=== PATIENT | male | born 1940 | race Caucasian/White ===

== ENCOUNTER 2018-11-26 12:17 | Inpatient (IN) ==
[2018-11-30] MEDS: Apixaban 5 MG TABLET PO SCH (20:28)
[2018-12-01 07:03] LABS: Basophils # 0.1 K/mcL (0.0-0.2); Basophils % 0.8 %; Eosinophils # 0.1 K/mcL (0.0-0.6); Eosinophils % 1.4 %; Hematocrit 41.9 % (37.5-50.1); Hemoglobin 13.5 g/dL (12.9-16.9); Immature Granulocytes % 0.2 % (0-4); Lymphocytes # 1.5 K/mcL (0.6-4.6); Lymphocytes % 15.8 %; Mean Corpuscular HGB Conc 32.2 g/dL (31.6-35.5); Mean Corpuscular Hemoglobin 29.3 pg (28.0-33.3); Mean Corpuscular Volume 90.9 fL (83.0-100.0); Mean Platelet Volume 10.2 fL (9.4-12.4); Monocytes # 0.8 K/mcL (0.0-1.3); Monocytes % 8.5 %; Neutrophils # 6.8 K/mcL (1.6-8.9); Platelet Count 225 K/mcL (140-400); Red Blood Count 4.61 M/mcL (4.19-5.50); Segmented Neutrophils % 73.3 %; White Blood Count 9.3 K/mcL (4.3-11.1)
[2018-12-01 07:35] LABS: BUN/Creatinine Ratio 18 (6-26); Blood Urea Nitrogen 20 mg/dL (8-23); Calcium 9.3 mg/dL (8.6-10.3); Carbon Dioxide 30 mEq/L (23-29); Chloride 106 mEq/L (98-107); Glucose 118 mg/dL (70-105); Osmolality,Calculated 294 (280-300); Potassium 4.4 mEq/L (3.5-5.1); Sodium 140 mEq/L (136-145); eGFR For African Americans > 60 (> 60); eGFR For Non-African Americans > 60 (> 60)
[2018-12-01] MEDS: Apixaban 5 MG TABLET PO SCH ×2 (09:12→19:53)
[2018-12-01] MEDS: (Fluticasone Furoate [Arnuity Ellipta] 1 PUFF) IH SCH (09:12)
--- NOTE | 2018-12-01 11:57 | Internal Med History&Physical ---
Date of Encounter: 12/01/18 Time of Encounter: 11:55 Assessment and Plan (1) CVA (cerebral vascular accident) Current visit: Yes Status: Acute PT and OT to eval and treat. Will follow progress. Assist with ADLs as necessary. Continue current medication. Follow up with neurologist as scheduled. Qualifiers: CVA mechanism: unspecified Qualified Code(s): I63.9 - Cerebral infarction, unspecified (2) COPD (chronic obstructive pulmonary disease) Current visit: Yes Status: Chronic Stable. Continue current medication. Qualifiers: COPD type: unspecified COPD Qualified Code(s): J44.9 - Chronic obstructive pulmonary disease, unspecified (3) HLD (hyperlipidemia) Current visit: Yes Status: Chronic Qualifiers: Hyperlipidemia type: mixed hyperlipidemia Qualified Code(s): E78.2 - Mixed hyperlipidemia (4) HTN (hypertension) Current visit: Yes Status: Chronic Controlled with current medication. Monitor blood pressure. Qualifiers: Hypertension type: essential hypertension Qualified Code(s): I10 - Essential (primary) hypertension (5) Paroxysmal atrial fibrillation Current visit: Yes Status: Acute Rate and rhythm stable. Continue current medication. On Plavix and eliquis. Internal Medicine - H&P: HPI Admitted From: Hospital to Hospital Transfer Plans for Post Hospital Care: Home History of present illness: Mr. Guthrie is a 78 year old male admitted to inpatient rehab s/p CVA. was taken to [facility] after family noticed left facial droop and left-sided weakness. He also had some slurred speech. MRI of brain showed acute infarct involving anterior limb of right internal capsule. Has admission was complicated by a fib with RVR, atrial flutter. Started on metoprolol and eliquis. Also taking Plavix. Patient denies shortness of breath, chest pain, fever, chills, nausea vomiting or diarrhea. Maintaining appetite and hydration. States bowels are moving as normal. Past medical history includes COPD, hypertension, hyperlipidemia and multiple TIAs. Lives at home with . Was independent with ADLs prior to admission. Past Med Surg Social Fam HX - Past Medical History Medical history: COPD, CVA, hyperlipidemia, hypertension Additional medical history: home 2L o2 at night Psychiatric history: no psych history - Past Surgical History Surgical History: orthopedic, other, other Additional surgical history: growth on neck, left foot all toes amputated - Social History Smoking Status: Never smoker Smokeless Tobacco Status: Yes Alcohol use: none Drug use: none - Family History Brother Family Member Ethnicity: Non- Living Status: Hx Family Cancer: Yes Hx Family Endocrine Disorder: Yes (DM) Father Family Member Ethnicity: Non- Living Status: Hx Family Cardiac Disorders: Yes Hx Family Respiratory Disorders: Yes (Asthma) Hx Family Cancer: No Hx Family GI Disorders: No Hx Family Endocrine Disorder: No Hx Family Neuromuscular Disorders: No Hx Family Neurologic Disorders: No Hx Family HEENT Disorders: No Hx Family Autoimmune Disorders: No Mother Family Member Ethnicity: Non- Living Status: Hx Family Cardiac Disorders: No Hx Family Respiratory Disorders: No Hx Family Cancer: No Hx Family GI Disorders: No Hx Family Endocrine Disorder: No Hx Family Neuromuscular Disorders: No Hx Family Neurologic Disorders: No Hx Family HEENT Disorders: No Hx Family Autoimmune Disorders: No Internal Medicine - H&P: Meds Albuterol Neb [Proventil Neb] 2.5 mg IH TID PRN 08/08/16 [History] Citalopram Hydrobromide [Celexa] 40 mg PO DAILY 08/08/16 [History] Lisinopril [Zestril] 5 mg PO DAILY 08/08/16 [History] Umeclidinium Brm/Vilanterol Tr [Anoro Ellipta 62.5-25 Mcg INH] 1 puff IH DAILY 08/08/16 [History] Omeprazole [PriLOSEC] 40 mg PO DAILY #30 cap 08/10/16 [Rx] Acetaminophen [Pain Relief] 1,500 mg PO HS PRN 11/26/18 [History] Albuterol Sulfate [Ventolin Hfa] 2 puff IH Q4-6H PRN 11/26/18 [History] Fluticasone Furoate [Arnuity Ellipta] 1 puff IH DAILY 11/26/18 [History] Apixaban [Eliquis] 5 mg PO BID #60 tablet 11/30/18 [Rx] Atorvastatin [Lipitor] 80 mg PO HS #30 tablet 11/30/18 [Rx] Clopidogrel [Plavix] 75 mg PO DAILY #30 tablet 11/30/18 [Rx] Metoprolol [Lopressor] 12.5 mg PO BID #60 tablet 11/30/18 [Rx] Allergy/AdvReac Type Severity Reaction Status Date / Time Penicillins AdvReac Rash Verified 05/27/18 12:27 All Systems PM: A 10-system review of systems was performed and is negative for pertinent findings except as documented above in the HPI. - Constitutional Constitutional: no chills, no fever(s), no night sweats - EENT Eyes: no change in vision, no discharge, no pain, no photophobia Ears: no ear discharge, no ear pain, no tinnitus Nose, mouth and throat: no dysphagia, no nasal discharge, no neck pain, no sore throat - Cardiovascular Cardiovascular ROS IM: no chest pain, no diaphoresis, no dyspnea, no lightheadedness, no palpitations, no syncope - Respiratory Respiratory: no cough, no dyspnea, no wheezing, no excessive phlegm production - Gastrointestinal Gastrointestinal: no abdominal pain, no diarrhea, no hematemesis, no hematochezia, no melena, no nausea, no vomiting - Musculoskeletal Musculoskeletal ROS IM: no numbness, no tingling - Integumentary Integumentary IM: no rash, no unusual bruising - Neurological Neurological ROS: no confusion, no convulsions, no focal weakness, no numbness, no tingling, no tremor(s) - Hematologic/Lymphatic Hematologic/Lymphatic: no easy bruising - Constitutional Vitals: Temp Pulse Resp BP Pulse Ox 97.9 F 53 16 121/70 95 12/01/18 11:00 12/01/18 11:00 12/01/18 11:00 12/01/18 11:00 12/01/18 11:00 General appearance: Present: cooperative, A&O X 3, pleasant, no acute distress, answers questions appropriately - Head Head exam: Present: atraumatic, normocephalic - Eye Eye exam: Present: PERRL, conjuntiva pink, sclera anicteric Pupils: Present: PERRL - Neck Neck exam general surgery: Present: supple, trachea midline. Absent: lymphadenopathy - Respiratory Respiratory exam: Present: CTAB. Absent: accessory muscle use, rales, rhonchi, wheezes - Cardiovascular Cardiovascular exam: Present: irregular rhythm, +S1, +S2. Absent: diastolic murmur, gallop, rubs, systolic murmur - GI/Abdominal GI/Abdominal exam: Present: normal bowel sounds, soft, no peritoneal signs. Absent: distended, tenderness - Extremities Exam Extremities exam: Present: warm, radial pulses palpable and symmetrical. Absent: calf tenderness, cyanotic, pedal edema - Neurological Exam Neurological exam: Present: CN II-XII intact, oriented X3, no focal deficits. Absent: pronater drift, facial droop, speech deficit - Skin Skin exam: Present: dry, intact Internal Med - H&P Results - Labs CBC & Chem 7: 12/01/18 06:30 12/01/18 06:30 Labs: Short CBC 12/01/18 Range/Units 06:30 WBC 9.3 (4.3-11.1) K/mcL Hgb 13.5 (12.9-16.9) g/dL Hct 41.9 (37.5-50.1) % Plt Count 225 (140-400) K/mcL Neutrophils # 6.8 (1.6-8.9) K/mcL BMP 12/01/18 06:30 Sodium 140 Potassium 4.4 Chloride 106 Carbon Dioxide 30 H BUN 20 Creatinine 1.11 Glucose 118 H Calcium 9.3
[2018-12-02] MEDS: Apixaban 5 MG TABLET PO SCH ×2 (07:47→20:53)
[2018-12-02] MEDS: (Fluticasone Furoate [Arnuity Ellipta] 1 PUFF) IH SCH (07:48)
--- NOTE | 2018-12-02 11:57 | Internal Med Progress Note ---
Date of Encounter: 12/02/18 Time of Encounter: 11:55 - Assessment and plan (1) CVA (cerebral vascular accident) Current Visit: Yes Status: Acute Assessment and plan: No new neurological deficits. Continue PT and OT and ST. Continue nectar thick diet. Follow up with neurologist as scheduled. Qualifiers: CVA mechanism: unspecified Qualified Code(s): I63.9 - Cerebral infarction, unspecified (2) COPD (chronic obstructive pulmonary disease) Current Visit: Yes Status: Chronic Assessment and plan: Stable. Monitor. Qualifiers: COPD type: unspecified COPD Qualified Code(s): J44.9 - Chronic obstructive pulmonary disease, unspecified (3) HLD (hyperlipidemia) Current Visit: Yes Status: Chronic Assessment and plan: Continue current medication. Qualifiers: Hyperlipidemia type: mixed hyperlipidemia Qualified Code(s): E78.2 - Mixed hyperlipidemia (4) HTN (hypertension) Current Visit: Yes Status: Chronic Assessment and plan: Controlled with current medication. Monitor blood pressure. Qualifiers: Hypertension type: essential hypertension Qualified Code(s): I10 - Essential (primary) hypertension (5) Paroxysmal atrial fibrillation Current Visit: Yes Status: Acute Assessment and plan: Rate and rhythm stable. Continue current medication. - Subjective Interval history: Participating well with therapy, fatigues easily. Continues to be on nectar thick liquids. No new neurological deficits. Denies fever, chills, nausea vomiting or diarrhea. Denies shortness of breath or chest pain. Last bowel movement was yesterday. - Constitutional Vitals: Temp Pulse Resp BP Pulse Ox 97.8 F 60 16 119/71 97 12/02/18 11:19 12/02/18 11:19 12/02/18 11:19 12/02/18 11:19 12/02/18 11:19 General appearance: Present: cooperative, A&O X 3, pleasant, no acute distress, answers questions appropriately Exam: Slight left facial droop - Head Head exam: Present: atraumatic, normocephalic - Eye Eye exam: Present: PERRL, conjuntiva pink, sclera anicteric Pupils: Present: PERRL - Neck Neck exam general surgery: Present: supple, trachea midline. Absent: lymphadenopathy - Respiratory Respiratory exam: Present: CTAB. Absent: accessory muscle use, rales, rhonchi, wheezes - Cardiovascular Cardiovascular exam: Present: RRR, +S1, +S2. Absent: diastolic murmur, gallop, rubs, systolic murmur - GI/Abdominal GI/Abdominal exam: Present: normal bowel sounds, soft, no peritoneal signs. Absent: distended, tenderness - Extremities Exam Extremities exam: Present: warm, radial pulses palpable and symmetrical. Absent: calf tenderness, cyanotic, pedal edema Additional comments: History of partial left foot amputation. - Neurological Exam Neurological exam: Present: CN II-XII intact, oriented X3, no focal deficits. Absent: pronater drift, facial droop, speech deficit - Skin Skin exam: Present: dry, intact Internal Medicine: Result - Labs CBC & Chem 7: 12/01/18 06:30 12/01/18 06:30 Consult Discharge Plan - Plan Referrals: Nara Carver MD [Primary Care Provider] -
[2018-12-03] MEDS: (Fluticasone Furoate [Arnuity Ellipta] 1 PUFF) IH SCH (08:28)
[2018-12-03] MEDS: Apixaban 5 MG TABLET PO SCH ×2 (08:30→21:05)
[2018-12-03] MEDS: Albuterol 2.5 MG/3 ML NEBULIZER IH PRN (09:32)
[2018-12-03 09:48] LABS: Basophils # 0.1 K/mcL (0.0-0.2); Basophils % 0.7 %; Eosinophils # 0.1 K/mcL (0.0-0.6); Eosinophils % 1.1 %; Hematocrit 42.2 % (37.5-50.1); Hemoglobin 13.6 g/dL (12.9-16.9); Immature Granulocytes % 0.1 % (0-4); Lymphocytes % 12.9 %; Mean Corpuscular HGB Conc 32.2 g/dL (31.6-35.5); Mean Corpuscular Hemoglobin 29.1 pg (28.0-33.3); Mean Corpuscular Volume 90.2 fL (83.0-100.0); Mean Platelet Volume 9.9 fL (9.4-12.4); Monocytes # 0.6 K/mcL (0.0-1.3); Monocytes % 7.5 %; Neutrophils # 5.8 K/mcL (1.6-8.9); Platelet Count 229 K/mcL (140-400); Red Blood Count 4.68 M/mcL (4.19-5.50); Red Cell Distribution Width 13.7 % (11.5-14.5); Segmented Neutrophils % 77.7 %; White Blood Count 7.5 K/mcL (4.3-11.1)
--- NOTE | 2018-12-03 12:04 | Internal Med Progress Note ---
Date of Encounter: 12/03/18 Time of Encounter: 12:02 - Assessment and plan (1) CVA (cerebral vascular accident) Current Visit: Yes Status: Acute Assessment and plan: No acute issues. Patient continues with slight left hemiparesis and facial droop. No dysarthria noted during exam. Patient participating in therapy and progressing well. We will continue with current plan of care. Qualifiers: CVA mechanism: unspecified Qualified Code(s): I63.9 - Cerebral infarction, unspecified (2) Chest pain Current Visit: Yes Status: Acute Assessment and plan: Patient had had a complaint of chest pain earlier this morning, which he states has resolved at time of exam. Patient denied any radiation or dyspnea. Denied any palpitations. EKG and troponin were negative. Chest x-ray showed no acute process. We will continue with therapy and current plan of care. We will continue with serial troponins Qualifiers: Chest pain type: unspecified Qualified Code(s): R07.9 - Chest pain, unspecified (3) COPD (chronic obstructive pulmonary disease) Current Visit: Yes Status: Chronic Assessment and plan: No acute issues. Agents lungs have diminished breath sounds to basilar bishop but otherwise are clear. Respiratory effort appears relaxed. No productive cough. We will continue with current medications. Qualifiers: COPD type: unspecified COPD Qualified Code(s): J44.9 - Chronic obstructive pulmonary disease, unspecified (4) Hypertension Current Visit: Yes Status: Chronic Assessment and plan: Vital signs have remained stable. We will continue with current medications. Blood pressure goal for systolic will be less than 160 due to patient's CVA Qualifiers: Hypertension type: essential hypertension Qualified Code(s): I10 - Essential (primary) hypertension (5) Type 2 diabetes mellitus Current Visit: Yes Status: Chronic Assessment and plan: No acute issues. Patient's glucoses been fairly well-controlled with most fingersticks less than 200. We will continue with current coverage. Qualifiers: Diabetes mellitus fpc insulin use: without fpc use Diabetes mellitus complication status: without complication Qualified Code(s): E11.9 - Type 2 diabetes mellitus without complications (6) Paroxysmal atrial fibrillation Current Visit: Yes Status: Acute Assessment and plan: No acute issues. Patient had a EKG due to complaint of chest pain which showed sinus rhythm with no ischemia or ectopy. Patient currently not in atrial fibrillation - Time Spent With Patient less than 15 minutes - Subjective Interval history: Patient appears relaxed and currently denies any discomforts or shortness of breath. Patient had earlier complaint of chest pain which she states has resolved at this time. Patient had had a chest x-ray which was obtained that showed no acute process. Initial troponin was obtained which was negative. EKG was obtained which shows sinus rhythm with no ischemia or ectopy noted. Patient denies any other current issues. - Constitutional Vitals: Temp Pulse Resp BP Pulse Ox 97.7 F 58 18 169/81 98 12/03/18 08:26 12/03/18 08:26 12/03/18 09:42 12/03/18 08:26 12/03/18 09:42 General appearance: Present: cooperative, A&O X 3, pleasant, no acute distress, answers questions appropriately - Head Head exam: Present: atraumatic, normocephalic - Eye Eye exam: Present: PERRL, conjuntiva pink, sclera anicteric Pupils: Present: PERRL - Neck Neck exam general surgery: Present: supple, trachea midline. Absent: lymphadenopathy - Respiratory Respiratory exam: Present: decreased breath sounds, CTAB. Absent: accessory muscle use, rales, rhonchi, wheezes Additional comments: Lungs are clear to upper bishop with diminished breath sounds heard to lower bishop. Respiratory effort appears relaxed. No productive cough. - Cardiovascular Cardiovascular exam: Present: RRR, +S1, +S2. Absent: diastolic murmur, gallop, rubs, systolic murmur Additional comments: EKG shows sinus rhythm without ectopy. - GI/Abdominal GI/Abdominal exam: Present: normal bowel sounds, soft, no peritoneal signs. Absent: distended, tenderness - Extremities Exam Extremities exam: Present: warm, radial pulses palpable and symmetrical. Absent: calf tenderness, cyanotic, pedal edema - Neurological Exam Neurological exam: Present: CN II-XII intact, oriented X3, facial droop. Absent: pronater drift, speech deficit Additional comments: Patient with very mild left hemiparesis at +4/5 MS with RE 5/5. Slight left facial droop. No dysarthria noted. - Skin Skin exam: Present: dry, intact Internal Medicine: Result - Labs CBC & Chem 7: 12/03/18 09:30 12/01/18 06:30 Labs: Short CBC 12/03/18 Range/Units 09:30 WBC 7.5 (4.3-11.1) K/mcL Hgb 13.6 (12.9-16.9) g/dL Hct 42.2 (37.5-50.1) % Plt Count 229 (140-400) K/mcL Neutrophils # 5.8 (1.6-8.9) K/mcL Cardiac Enzymes 12/03/18 Range/Units 09:30 Troponin I 0.03 (< 0.04) ng/mL - Impressions Impressions Chest X-Ray 12/03/18 09:25 IMPRESSION: 1. No evidence of acute cardiopulmonary disease. D/ / Christian Flower MD / Christian Flower MD Interpreting Provider: Christian Flower MD Consult Discharge Plan - Plan Referrals: Jamaal Flowers MD [Partnered Physician] - 12/29/18 3:00 pm Nara Carver MD [Primary Care Provider] -
--- NOTE | 2018-12-03 14:36 | Psychological Evaluation ---
Date of Encounter: 12/03/18 Time of Encounter: 11:30 History of Present Illness History of present illness: Mr. Guthrie is a 78 year old male admitted to inpatient rehab s/p CVA. He was taken to [facility] after family noticed left facial droop and left-sided weakness. He also had some slurred speech. MRI of brain showed acute infarct involving anterior limb of right internal capsule. Has admission was complicated by a fib with RVR, atrial flutter. Started on metoprolol and eliquis. Also taking Plavix. Patient denies shortness of breath, chest pain, fever, chills, nausea vomiting or diarrhea. Maintaining appetite and hydration. States bowels are moving as normal. Past medical history includes COPD, hypertension, hyperlipidemia and multiple TIAs. Lives at home with . Was independent with ADLs prior to admission. Past Medical History - Psychiatric History Psychiatric history: Reports: no psych history Additional Psychiatric History: Stated he was involved with AA in . Had significant alcohol issue prior and none since. Home Medications and Allergies Albuterol Neb [Proventil Neb] 2.5 mg IH TID PRN 08/08/16 [History] Citalopram Hydrobromide [Celexa] 40 mg PO DAILY 08/08/16 [History] Lisinopril [Zestril] 5 mg PO DAILY 08/08/16 [History] Umeclidinium Brm/Vilanterol Tr [Anoro Ellipta 62.5-25 Mcg INH] 1 puff IH DAILY 08/08/16 [History] Omeprazole [PriLOSEC] 40 mg PO DAILY #30 cap 08/10/16 [Rx] Acetaminophen [Pain Relief] 1,500 mg PO HS PRN 11/26/18 [History] Albuterol Sulfate [Ventolin Hfa] 2 puff IH Q4-6H PRN 11/26/18 [History] Fluticasone Furoate [Arnuity Ellipta] 1 puff IH DAILY 11/26/18 [History] Apixaban [Eliquis] 5 mg PO BID #60 tablet 11/30/18 [Rx] Atorvastatin [Lipitor] 80 mg PO HS #30 tablet 11/30/18 [Rx] Clopidogrel [Plavix] 75 mg PO DAILY #30 tablet 11/30/18 [Rx] Metoprolol [Lopressor] 12.5 mg PO BID #60 tablet 11/30/18 [Rx] Allergy/AdvReac Type Severity Reaction Status Date / Time Penicillins AdvReac Rash Verified 05/27/18 12:27 Social History - Social History Social History: 59 years and lives in an apartment. 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 Has 4 adult children and grandchildren. Rported he was not driving much prior to CVA due to decreased comprehension and confusion. - Tobacco Use Smoking Status: Former smoker - Alcohol Use Alcohol Use: none - Drug Use Drug Use: none Cognitive/Emotional Assessment - Cognitive Ability Level of Alertness: Alert Orientation: Person, Place, Time Ability to Follow Directions: Good Speech Pattern: Slurred Additional Findings: Able to repeat 3/3 words immediately and 0/3 after 5min, 1/3 with category cue. Digits forward 6 and backward 4. Could not spell WORLD backwards but could forward. Unable to perform serial 3's. Unable to perform mental mathematics. Stated he has noticed more weakness, decreased STM, and poor balance since this event. Processing was very slow/labored. - Emotional Status Mood Description: Depressed Affect Description: Flat Coping Ability: Unsure about ability to cope Additional Findings: Stated depression has been an issue in his life. On Celexa. Noted yawning throughout session. Assessment & Plan - Diagnosis (1) Adjustment disorder with depressed mood - Prognosis Prognosis: Fair - Treatment Plan Treatment Plan/Recommendations: Develop and train coping strategies to increase adaptation to changes since CVA. Treatment Frequency: weekly Next Session Date: 12/10/18 Procedures - Participants Therapy Participant: Patient - Session Time Session Start Time: 11:30 Session Stop Time: 12:00
[2018-12-04] MEDS: Apixaban 5 MG TABLET PO SCH ×2 (08:06→20:38)
[2018-12-04] MEDS: (Fluticasone Furoate [Arnuity Ellipta] 1 PUFF) IH SCH (10:11)
--- NOTE | 2018-12-04 11:33 | Internal Med Progress Note ---
Date of Encounter: 12/04/18 Time of Encounter: 10:30 - Assessment and plan (1) COPD (chronic obstructive pulmonary disease) Current Visit: Yes Status: Chronic Assessment and plan: Clinically stable and seeming to do well compared to yesterday. Qualifiers: COPD type: unspecified COPD Qualified Code(s): J44.9 - Chronic obstructive pulmonary disease, unspecified (2) HTN (hypertension) Current Visit: Yes Status: Chronic Assessment and plan: Controlled. Qualifiers: Hypertension type: essential hypertension Qualified Code(s): I10 - Essential (primary) hypertension (3) Type 2 diabetes mellitus Current Visit: Yes Status: Chronic Assessment and plan: Controlled and will continue current regimen. Qualifiers: Diabetes mellitus mcc insulin use: without mcc use Diabetes mellitus complication status: without complication Qualified Code(s): E11.9 - Type 2 diabetes mellitus without complications (4) Generalized weakness Current Visit: No Status: Acute Assessment and plan: Patient continues to improve and will follow with therapies. (5) History of CVA (cerebrovascular accident) without residual deficits Current Visit: No Status: Acute Assessment and plan: No new signs or symptoms. - Subjective Interval history: Patient is feeling well. He states his breathing is fine and he has had no more chest discomfort, shortness of breath, weakness, etc. since yesterday morning. We talked about his abnormal blood tests and the fact that this seems to be fine, now. He feels his weakness is improving and he wants to go home. Patient has no complaint of chest discomfort, dyspnea, orthopnea, palpitations, nausea or vomiting, constipation or diarrhea, other changes in bowel habits, difficulty with urination, rash or itching, or other new complaints, except as mentioned above. Review of systems is otherwise negative. I discussed management of patient's care with nursing staff. - Constitutional Vitals: Temp Pulse Resp BP Pulse Ox 97.6 F 61 15 130/83 96 12/04/18 07:00 12/04/18 07:00 12/04/18 07:00 12/04/18 07:00 12/04/18 07:00 Exam: Examination: (Except as mentioned above): General: In no apparent distress. Alert and oriented 3. Nondiaphoretic. Head: Atraumatic and normocephalic. Respiratory: No use of accessory muscles. Lungs are clear throughout with the occasional exception of sonorous rhonchi in the right lung. Normal airflow. Cardiovascular: Regular rate and rhythm without murmur appreciated. Abdomen: Bowel sounds are normal. No hepatosplenomegaly mass or tenderness a ppreciated. Obese and therefore difficult to palpate deeply. Extremities: No cyanosis clubbing or edema. Patient is examined upright in chair and this also limits exam. Skin: Warm and non-diaphoretic with no new lesions noted. Internal Medicine: Result - Labs CBC & Chem 7: 12/03/18 09:30 12/01/18 06:30 Labs: Cardiac Enzymes 12/03/18 12/03/18 Range/Units 15:25 21:15 Troponin I 0.04 H* 0.03 (< 0.04) ng/mL Consult Discharge Plan - Plan Referrals: Jamaal Flowers MD [Partnered Physician] - 12/29/18 3:00 pm Nara Carver MD [Primary Care Provider] -
[2018-12-04] MEDS: Albuterol 2.5 MG/3 ML NEBULIZER IH PRN (15:07)
[2018-12-05] MEDS: Apixaban 5 MG TABLET PO SCH ×2 (09:04→20:40)
[2018-12-05] MEDS: (Fluticasone Furoate [Arnuity Ellipta] 1 PUFF) IH SCH (10:42)
--- NOTE | 2018-12-05 10:45 | Internal Med Progress Note ---
Date of Encounter: 12/05/18 Time of Encounter: 10:43 - Assessment and plan (1) CVA (cerebral vascular accident) Current Visit: Yes Status: Acute Assessment and plan: No acute issues. Patient continues with slight left facial droop. No dysarthria or extremity paresis noted during exam. Patient participating in therapy and progressing well. We will continue with current plan of care. Qualifiers: CVA mechanism: unspecified Qualified Code(s): I63.9 - Cerebral infarction, unspecified (2) COPD (chronic obstructive pulmonary disease) Current Visit: Yes Status: Chronic Assessment and plan: No acute issues. Agents lungs have diminished breath sounds to basilar bishop but otherwise are clear. Respiratory effort appears relaxed. No productive cough. We will continue with current medications. Qualifiers: COPD type: unspecified COPD Qualified Code(s): J44.9 - Chronic obstructive pulmonary disease, unspecified (3) Hypertension Current Visit: Yes Status: Chronic Assessment and plan: Vital signs have remained stable. We will continue with current medications. Blood pressure goal for systolic will be less than 160 due to patient's CVA Qualifiers: Hypertension type: essential hypertension Qualified Code(s): I10 - Essential (primary) hypertension (4) Type 2 diabetes mellitus Current Visit: Yes Status: Chronic Assessment and plan: No acute issues. Patient's glucoses been fairly well-controlled with most fingersticks less than 200. We will continue with current coverage. 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 Patient states he has not had any reoccurrence of chest discomforts. States that he feels his therapy is progressing well for him. Patient states he is wanting to go home. - Constitutional Vitals: Temp Pulse Resp BP Pulse Ox 98.1 F 68 14 109/64 95 12/04/18 19:11 12/04/18 19:11 12/04/18 19:11 12/04/18 19:11 12/04/18 19:11 General appearance: Present: cooperative, A&O X 3, pleasant, no acute distress, answers questions appropriately - Head Head exam: Present: atraumatic, normocephalic - Eye Eye exam: Present: PERRL, conjuntiva pink, sclera anicteric Pupils: Present: PERRL - Neck Neck exam general surgery: Present: supple, trachea midline. Absent: lymphadenopathy - Respiratory Respiratory exam: Present: CTAB. Absent: accessory muscle use, rales, rhonchi, wheezes - Cardiovascular Cardiovascular exam: Present: RRR, +S1, +S2. Absent: diastolic murmur, gallop, rubs, systolic murmur - GI/Abdominal GI/Abdominal exam: Present: normal bowel sounds, soft, no peritoneal signs. Absent: distended, tenderness - Extremities Exam Extremities exam: Present: warm, radial pulses palpable and symmetrical. Absent: calf tenderness, cyanotic, pedal edema - Neurological Exam Neurological exam: Present: CN II-XII intact, oriented X3, facial droop, speech deficit. Absent: pronater drift Additional comments: Patient shows slight left facial droop. No dysarthria noted. Patient's muscle strength appeared equal today with muscle strength at 5/5 to all extremities - Skin Skin exam: Present: dry, intact Internal Medicine: Result - Labs CBC & Chem 7: 12/03/18 09:30 12/01/18 06:30 Consult Discharge Plan - Plan Referrals: Jamaal Flowers MD [Partnered Physician] - 12/29/18 3:00 pm Nara Carver MD [Primary Care Provider] -
[2018-12-06] MEDS: Apixaban 5 MG TABLET PO SCH ×2 (09:06→20:50)
[2018-12-06] MEDS: (Fluticasone Furoate [Arnuity Ellipta] 1 PUFF) IH SCH (09:11)
--- NOTE | 2018-12-06 13:23 | Internal Med Progress Note ---
Date of Encounter: 12/07/18 Time of Encounter: 12:14 - Subjective Interval history: - Assessment and plan (1) CVA (cerebral vascular accident) Current Visit: Yes Status: Acute Assessment and plan: No acute issues. Patient continues with slight left facial droop. He feels he is getting stronger. No dysarthria or extremity paresis noted during exam. Patient participating in therapy and progressing well. We will continue with current plan of care. Qualifiers: CVA mechanism: unspecified Qualified Code(s): I63.9 - Cerebral infarction, unspecified (2) COPD (chronic obstructive pulmonary disease) Current Visit: Yes Status: Chronic Assessment and plan: No acute issues. Doing well. Denies cough. Respiratory effort appears relaxed. No productive cough. We will continue with current medications. Qualifiers: COPD type: unspecified COPD Qualified Code(s): J44.9 - Chronic obstructive pulmonary disease, unspecified (3) Hypertension Current Visit: Yes Status: Chronic Assessment and plan: Vital signs have remained stable. We will continue with current medications. Blood pressure goal for systolic will be less than 160 due to patient's CVA Qualifiers: Hypertension type: essential hypertension Qualified Code(s): I10 - Essential (primary) hypertension (4) Type 2 diabetes mellitus Current Visit: Yes Status: Chronic Assessment and plan: No acute issues. Patient's glucoses been fairly well-controlled with most fingersticks less than 200. We will continue with current coverage. 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 no discomforts. States that he feels his therapy is progressing well for him. - EXAM General appearance: Present: Thin WM cooperative, A&O X 3, pleasant, no acute distress, soft spoken - Head Head exam: Present: atraumatic, normocephalic - Eye Eye exam: Present: PERRL, conjuntiva pink, sclera anicteric Pupils: Present: PERRL - Neck Neck exam general surgery: Present: supple, trachea midline. Absent: lymphadenopathy - Respiratory Respiratory exam: Present: CTAB. Absent: accessory muscle use, rales, rhonchi, wheezes - Cardiovascular Cardiovascular exam: Present: RRR, +S1, +S2. Absent: diastolic murmur, gallop, rubs, systolic murmur - GI/Abdominal GI/Abdominal exam: Present: normal bowel sounds, soft, no peritoneal signs. Absent: distended, tenderness - Extremities Exam Extremities exam: Present: warm, radial pulses palpable and symmetrical. Absent: calf tenderness, cyanotic, pedal edema - Neurological Exam Neurological exam: Present: CN II-XII intact, oriented X3, facial droop, speech deficit. Absent: pronater drift Additional comments: Patient shows slight left facial droop. No dysarthria noted. Patient's muscle strength appeared equal today with muscle strength at 5/5 to all extremities - Skin Skin exam: Present: dry, intact - Constitutional Vitals: Temp Pulse Resp BP Pulse Ox 98.0 F 65 14 147/82 94 12/06/18 08:38 12/06/18 08:38 12/06/18 08:38 12/06/18 08:38 12/06/18 08:38 General appearance: Present: cooperative, A&O X 3, pleasant, no acute distress, answers questions appropriately Internal Medicine: Result - Labs CBC & Chem 7: 12/03/18 09:30 12/01/18 06:30 Consult Discharge Plan - Plan Referrals: Jamaal Flowers MD [Partnered Physician] - 12/29/18 3:00 pm Nara Carver MD [Primary Care Provider] -
[2018-12-06] MEDS: Albuterol 2.5 MG/3 ML NEBULIZER IH PRN (16:09)
[2018-12-07] MEDS: Apixaban 5 MG TABLET PO SCH ×2 (08:56→23:01)
[2018-12-07] MEDS: (Fluticasone Furoate [Arnuity Ellipta] 1 PUFF) IH SCH (09:09)
--- NOTE | 2018-12-07 16:22 | Internal Med Progress Note ---
Date of Encounter: 12/07/18 Time of Encounter: 15:50 - Subjective Interval history: - Assessment and plan (1) CVA (cerebral vascular accident) Current Visit: Yes Status: Acute Assessment and plan: No acute issues. Patient continues with slight left facial droop. He feels he is getting stronger. No dysarthria or extremity paresis noted during exam. Patient participating in therapy and progressing well. We will continue with current plan of care. Qualifiers: CVA mechanism: unspecified Qualified Code(s): I63.9 - Cerebral infarction, unspecified (2) COPD (chronic obstructive pulmonary disease) Current Visit: Yes Status: Chronic Assessment and plan: No acute issues. Doing well. Denies cough. Respiratory effort appears relaxed. No productive cough. We will continue with current medications. Qualifiers: COPD type: unspecified COPD Qualified Code(s): J44.9 - Chronic obstructive pulmonary disease, unspecified (3) Hypertension Current Visit: Yes Status: Chronic Assessment and plan: Vital signs have remained stable. We will continue with current medications. Blood pressure goal for systolic will be less than 160 due to patient's CVA Qualifiers: Hypertension type: essential hypertension Qualified Code(s): I10 - Essential (primary) hypertension (4) Type 2 diabetes mellitus Current Visit: Yes Status: Chronic Assessment and plan: No acute issues. Patient's glucoses been fairly well-controlled with most fingersticks less than 200. We will continue with current coverage. Qualifiers: Diabetes mellitus terminal gauger insulin use: without terminal gauger use Diabetes m ellitus complication status: without complication Qualified Code(s): E11.9 - Type 2 diabetes mellitus without complications - Time Spent With Patient less than 15 minutes - Subjective Interval history: Patient is having a good day. no cp He is happy with his progress.. no discomforts. States that he feels his therapy is progressing well for him. - EXAM General appearance: Present: Thin WM cooperative, A&O X 3, pleasant, no acute distress, soft spoken - Head Head exam: Present: atraumatic, normocephalic - Eye Eye exam: Present: PERRL, conjuntiva pink, sclera anicteric Pupils: Present: PERRL - Neck Neck exam general surgery: Present: supple, trachea midline. Absent: lymphadenopathy - Respiratory Respiratory exam: Present: CTAB. Absent: accessory muscle use, rales, rhonchi, wheezes - Cardiovascular Cardiovascular exam: Present: RRR, +S1, +S2. Absent: diastolic murmur, gallop, rubs, systolic murmur - GI/Abdominal GI/Abdominal exam: Present: normal bowel sounds, soft, no peritoneal signs. Absent: distended, tenderness - Extremities Exam Extremities exam: Present: warm, radial pulses palpable and symmetrical. Absent: calf tenderness, cyanotic, pedal edema - Neurological Exam Neurological exam: Present: CN II-XII intact, oriented X3, facial droop, speech deficit. Absent: pronater drift Additional comments: Patient shows slight left facial droop. No dysarthria noted. Patient's muscle strength appeared equal today with muscle strength at 5/5 to all extremities - Skin Skin exam: Present: dry, intact - Constitutional Vitals: Temp Pulse Resp BP Pulse Ox 98.1 F 69 15 136/88 96 12/07/18 08:41 12/07/18 08:41 12/07/18 08:41 12/07/18 08:41 12/07/18 08:41 General appearance: Present: cooperative, A&O X 3, pleasant, no acute distress, answers questions appropriately Internal Medicine: Result - Labs CBC & Chem 7: 12/03/18 09:30 12/01/18 06:30 Consult Discharge Plan - Plan Referrals: Jamaal Flowers MD [Partnered Physician] - 12/29/18 3:00 pm Nara Carver MD [Primary Care Provider] -
[2018-12-07] MEDS ORDERED: Loperamide 1 MG/5 ML UDC PO PRN (22:56)
[2018-12-08] MEDS: Lactobacillus 1 EACH CAP.SPRINK PO SCH (08:01)
[2018-12-08] MEDS: Apixaban 5 MG TABLET PO SCH ×2 (08:02→20:44)
[2018-12-08] MEDS: (Fluticasone Furoate [Arnuity Ellipta] 1 PUFF) IH SCH (08:05)
--- NOTE | 2018-12-08 10:15 | Internal Med Progress Note ---
Date of Encounter: 12/08/18 Time of Encounter: 10:14 - Assessment and plan (1) CVA (cerebral vascular accident) Current Visit: Yes Status: Acute Assessment and plan: No acute issues. Patient continues with slight left facial droop. No dysarthria or extremity paresis noted during exam. Patient participating in therapy and progressing well. We will continue with current plan of care. Qualifiers: CVA mechanism: unspecified Qualified Code(s): I63.9 - Cerebral infarction, unspecified (2) COPD (chronic obstructive pulmonary disease) Current Visit: Yes Status: Chronic Assessment and plan: No acute issues. Agents lungs have diminished breath sounds to basilar bishop but otherwise are clear. Respiratory effort appears relaxed. No productive cough. We will continue with current medications. Qualifiers: COPD type: unspecified COPD Qualified Code(s): J44.9 - Chronic obstructive pulmonary disease, unspecified (3) Hypertension Current Visit: Yes Status: Chronic Assessment and plan: Vital signs have remained stable. We will continue with current medications. Blood pressure goal for systolic will be less than 160 due to patient's CVA Qualifiers: Hypertension type: essential hypertension Qualified Code(s): I10 - Essential (primary) hypertension (4) Type 2 diabetes mellitus Current Visit: Yes Status: Chronic Assessment and plan: No acute issues. Patient's glucoses been fairly well-controlled with most fingersticks less than 200. We will continue with current coverage. Qualifiers: Diabetes mellitus superintendent terminal insulin use: without superintendent terminal use Diabetes mellitus complication status: without complication Qualified Code(s): E11.9 - Type 2 diabetes mellitus without complications - Time Spent With Patient less than 15 minutes - Subjective Interval history: Patient appears relaxed and currently denies any discomforts or shortness of breath. Patient states he has not had any reoccurrence of chest discomforts. States that he feels his therapy is progressing well for him. Patient states he is wanting to go home. - Constitutional Vitals: Temp Pulse Resp BP Pulse Ox 97.9 F 90 17 127/70 95 12/08/18 07:10 12/08/18 07:10 12/08/18 08:05 12/08/18 07:10 12/08/18 08:05 General appearance: Present: cooperative, A&O X 3, pleasant, no acute distress, answers questions appropriately - Head Head exam: Present: atraumatic, normocephalic - Eye Eye exam: Present: PERRL, conjuntiva pink, sclera anicteric Pupils: Present: PERRL - Neck Neck exam general surgery: Present: supple, trachea midline. Absent: lymphadenopathy - Respiratory Respiratory exam: Present: CTAB. Absent: accessory muscle use, rales, rhonchi, wheezes - Cardiovascular Cardiovascular exam: Present: RRR, +S1, +S2. Absent: diastolic murmur, gallop, rubs, systolic murmur - GI/Abdominal GI/Abdominal exam: Present: normal bowel sounds, soft, no peritoneal signs. Absent: distended, tenderness - Extremities Exam Extremities exam: Present: warm, radial pulses palpable and symmetrical. Absent: calf tenderness, cyanotic, pedal edema - Neurological Exam Neurological exam: Present: CN II-XII intact, oriented X3, facial droop. Absent: pronater drift, speech deficit Additional comments: Patient continues with slight left facial droop. Recent history of left hemiparesis but no motor deficits noted on today's exam with all extremities 5/5 - Skin Skin exam: Present: dry, intact Internal Medicine: Result - Labs CBC & Chem 7: 12/03/18 09:30 12/01/18 06:30 Consult Discharge Plan - Plan Referrals: Jamaal Flowers MD [Partnered Physician] - 12/29/18 3:00 pm Nara Carver MD [Primary Care Provider] -
--- NOTE | 2018-12-08 12:21 | Electrocardiograph Report ---
[address] [place], [place] [address] Test Date: 2018-12-03 Pat Name: Tej Guthrie Department: 2001 Room: 105 Gender: M Etl Analyst Developer: Tb : 1940 Requested By: Washington Ballesteros Order Number: [id number] Reading MD: Adan Ceballos Measurements Intervals [place] Rate: 62 P: 52 OK: 162 QRS: 47 QRSD: 93 T: 50 QT: 399 QTc: 403 Interpretive Statements SINUS RHYTHM WITH SINUS ARRHYTHMIA Electronically Signed On 12-08-2018 12:19:53 EDT by Adan Ceballos
[2018-12-09] MEDS: (Fluticasone Furoate [Arnuity Ellipta] 1 PUFF) IH SCH (07:03)
[2018-12-09] MEDS: Apixaban 5 MG TABLET PO SCH ×2 (08:17→20:42)
[2018-12-09] MEDS: Lactobacillus 1 EACH CAP.SPRINK PO SCH (08:17)
--- NOTE | 2018-12-09 09:51 | Internal Med Progress Note ---
Date of Encounter: 12/09/18 Time of Encounter: 09:50 - Assessment and plan (1) CVA (cerebral vascular accident) Current Visit: Yes Status: Acute Assessment and plan: No new neurological deficits. Continue PT and OT and ST. Continue nectar thick diet. Follow up with neurologist as scheduled. Qualifiers: CVA mechanism: unspecified Qualified Code(s): I63.9 - Cerebral infarction, unspecified (2) COPD (chronic obstructive pulmonary disease) Current Visit: Yes Status: Chronic Assessment and plan: Stable. Monitor. Qualifiers: COPD type: unspecified COPD Qualified Code(s): J44.9 - Chronic obstructive pulmonary disease, unspecified (3) HLD (hyperlipidemia) Current Visit: Yes Status: Chronic Assessment and plan: Continue current medication. Qualifiers: Hyperlipidemia type: mixed hyperlipidemia Qualified Code(s): E78.2 - Mixed hyperlipidemia (4) HTN (hypertension) Current Visit: Yes Status: Chronic Assessment and plan: Controlled with current medication. Monitor blood pressure. Qualifiers: Hypertension type: essential hypertension Qualified Code(s): I10 - Essential (primary) hypertension (5) Paroxysmal atrial fibrillation Current Visit: Yes Status: Acute Assessment and plan: Rate and rhythm stable. Continue current medication. - Time Spent With Patient less than 15 minutes - Subjective Interval history: Participating well with therapy, fatigues easily. Continues to be on thick liquids, working with ST. No new neurological deficits. Denies fever, chills, nausea vomiting or diarrhea. Denies shortness of breath or chest pain. Last bowel movement was this am. scheduled for discharge on 12/12/2018 - Constitutional Vitals: Temp Pulse Resp BP Pulse Ox 98.3 F 54 15 150/71 96 12/09/18 07:55 12/09/18 07:55 12/09/18 07:55 12/09/18 07:55 12/09/18 07:55 General appearance: Present: cooperative, A&O X 3, pleasant, no acute distress, answers questions appropriately - Head Head exam: Present: atraumatic, normocephalic - Eye Eye exam: Present: PERRL, conjuntiva pink, sclera anicteric Pupils: Present: PERRL - Neck Neck exam general surgery: Present: supple, trachea midline. Absent: lymphadeno gilberto - Respiratory Respiratory exam: Present: CTAB. Absent: accessory muscle use, rales, rhonchi, wheezes - Cardiovascular Cardiovascular exam: Present: RRR, +S1, +S2. Absent: diastolic murmur, gallop, rubs, systolic murmur - GI/Abdominal GI/Abdominal exam: Present: normal bowel sounds, soft, no peritoneal signs. Absent: distended, tenderness - Extremities Exam Extremities exam: Present: warm, radial pulses palpable and symmetrical. Ab sent: calf tenderness, cyanotic, pedal edema - Neurological Exam Neurological exam: Present: CN II-XII intact, oriented X3, no focal deficits. Absent: pronater drift, facial droop, speech deficit - Skin Skin exam: Present: dry, intact Internal Medicine: Result - Labs CBC & Chem 7: 12/03/18 09:30 12/01/18 06:30 Consult Discharge Plan - Plan Referrals: Jamaal Flowers MD [Partnered Physician] - 12/29/18 3:00 pm Nara Carver MD [Primary Care Provider] -
[2018-12-10] MEDS: Lactobacillus 1 EACH CAP.SPRINK PO SCH (08:41)
[2018-12-10] MEDS: Apixaban 5 MG TABLET PO SCH ×2 (08:41→19:59)
[2018-12-10] MEDS: (Fluticasone Furoate [Arnuity Ellipta] 1 PUFF) IH SCH (11:18)
--- NOTE | 2018-12-10 12:41 | Internal Med Progress Note ---
Date of Encounter: 12/10/18 Time of Encounter: 12:39 - Assessment and plan (1) CVA (cerebral vascular accident) Current Visit: Yes Status: Acute Assessment and plan: No acute issues. Patient continues with slight left facial droop. No dysarthria or extremity paresis noted during exam. Patient participating in therapy and progressing well. We will continue with current plan of care. Patient being prepared for discharge later this week. Qualifiers: CVA mechanism: unspecified Qualified Code(s): I63.9 - Cerebral infarction, unspecified (2) COPD (chronic obstructive pulmonary disease) Current Visit: Yes Status: Chronic Assessment and plan: No acute issues. Agents lungs have diminished breath sounds to basilar bishop but otherwise are clear. Respiratory effort appears relaxed. No productive cough. We will continue with current medications. Qualifiers: COPD type: unspecified COPD Qualified Code(s): J44.9 - Chronic obstructive pulmonary disease, unspecified (3) Hypertension Current Visit: Yes Status: Chronic Assessment and plan: Vital signs have remained stable. We will continue with current medications. Blood pressure goal for systolic will be less than 160 due to patient's CVA Qualifiers: Hypertension type: essential hypertension Qualified Code(s): I10 - Essential (primary) hypertension (4) Type 2 diabetes mellitus Current Visit: Yes Status: Chronic Assessment and plan: No acute issues. Patient's glucoses been fairly well-controlled with most fingersticks less than 200. We will continue with current coverage. Qualifiers: Diabetes mellitus salvage determiner insulin use: without salvage determiner use Diabetes mellitus complication status: without complication Qualified Code(s): E11.9 - Type 2 diabetes mellitus without complications - Time Spent With Patient less than 15 minutes - Subjective Interval history: Patient appears relaxed and currently denies any discomforts or shortness of breath. Patient states he has not had any reoccurrence of chest discomforts. States that he feels his therapy is progressing well for him. Patient is scheduled for discharge this coming Saturday. - Constitutional Vitals: Temp Pulse Resp BP Pulse Ox 97.8 F 67 18 137/78 95 12/10/18 07:00 12/10/18 07:00 12/10/18 07:00 12/10/18 07:00 12/10/18 08:45 General appearance: Present: cooperative, A&O X 3, pleasant, no acute distress, answers questions appropriately - Head Head exam: Present: atraumatic, normocephalic - Eye Eye exam: Present: PERRL, conjuntiva pink, sclera anicteric Pupils: Present: PERRL - Neck Neck exam general surgery: Present: supple, trachea midline. Absent: lymphadenopathy - Respiratory Respiratory exam: Present: CTAB. Absent: accessory muscle use, rales, rhonchi, wheezes - Cardiovascular Cardiovascular exam: Present: RRR, +S1, +S2. Absent: diastolic murmur, gallop, rubs, systolic murmur - GI/Abdominal GI/Abdominal exam: Present: normal bowel sounds, soft, no peritoneal signs. Absent: distended, tenderness - Extremities Exam Extremities exam: Present: warm, radial pulses palpable and symmetrical. Absent: calf tenderness, cyanotic, pedal edema - Neurological Exam Neurological exam: Present: CN II-XII intact, oriented X3, no focal deficits, facial droop. Absent: pronater drift, speech deficit Additional comments: Patient continues with slight left facial droop, otherwise no focal deficits noted on his exam. Patient does continue to have dysphagia per speech therapy - Skin Skin exam: Present: dry, intact Internal Medicine: Result - Labs CBC & Chem 7: 12/03/18 09:30 12/01/18 06:30 Consult Discharge Plan - Plan Referrals: Jamaal Flowers MD [Partnered Physician] - 12/29/18 3:00 pm Nara Carver MD [Primary Care Provider] -
[2018-12-11 07:47] VITALS: BP 121/78
[2018-12-11] MEDS: Lactobacillus 1 EACH CAP.SPRINK PO SCH (09:34)
[2018-12-11] MEDS: Apixaban 5 MG TABLET PO SCH (09:35)
[2018-12-11] MEDS: (Fluticasone Furoate [Arnuity Ellipta] 1 PUFF) IH SCH (09:38)
--- NOTE | 2018-12-11 10:42 | Discharge Summary ---
Date of Encounter: 12/11/18 Time of Encounter: 10:40 - Discharge Diagnosis (1) CVA (cerebral vascular accident) Priority: Primary Status: Acute Comments: Patient was admitted for a right CVA and showed a slight left hemiparesis, left facial droop and dysarthria on admission. Patient progressed with therapy and currently shows no motor deficits on exam. Patient continues with slight left facial droop. No dysarthria noted but patient continues on a dysphagia diet per speech therapy. No acute issues during his stay. Patient will continue his physical therapy through outpatient services. Qualifiers: CVA mechanism: unspecified Qualified Code(s): I63.9 - Cerebral infarction, unspecified (2) COPD (chronic obstructive pulmonary disease) Priority: Secondary Status: Chronic Comments: No issues during her stay at this facility. Patient is to continue with his current medications and bronchodilators. Patient is to follow up with PCP after discharge Qualifiers: COPD type: unspecified COPD Qualified Code(s): J44.9 - Chronic obstructive pulmonary disease, unspecified (3) Hypertension Priority: Secondary Status: Chronic Comments: Vital signs have remained stable during his stay of facility. Patient is to discharge home on current medications and follow-up with PCP after discharge Qualifiers: Hypertension type: essential hypertension Qualified Code(s): I10 - Essential (primary) hypertension (4) Type 2 diabetes mellitus Priority: Secondary Status: Chronic Comments: Patients glucose has remained well-controlled during stay of facility. Patient will be discharged with current home medications and follow-up with PCP after discharge Qualifiers: Diabetes mellitus residential insulin use: without residential use Diabetes mellitus complication status: without complication Qualified Code(s): E11.9 - Type 2 diabetes mellitus without complications Hospital course: Mr. Guthrie is a 78 year old male, who was admitted to inpatient rehab s/p CVA. He was initially treated at [facility] after family noticed left facial droop, slurred speech and left-sided weakness. MRI of brain showed acute infarct involving anterior limb of right internal capsule. Has admission was complicated by a fib with RVR, atrial flutter. Started on metoprolol and eliquis, and was also taking Plavix. Past medical history includes COPD, hypertension, hyperlipidemia and multiple TIAs. Patient was admitted to this facility for further rehabilitation due to generalized weakness and for speech therapy due to his dysarthria. Patient progressed well during his stay of facility. Patient's muscle strength to his left hemiparesis has progressed well currently no residual noted during exam. Patient continues with slight dysarthria and left facial droop and continues with a dysphagia diet. Patient had one episode of chest pain during his stay, but after evaluation with EKG and troponin, it was determined to be noncardiac. Patient's glucose has been well controlled during his stay at this facility. Patient is being discharged to home, but will be continuing his therapy through outpatient services. Patient is to follow-up with his neurologist and PCP within the one week after discharge. Patient is being provided with a pres cription for his eloquent. Discharge discussed with: patient Time spent discussing smoking cessation with patient: 3 to 10 minutes - Time Spent with Patient Total time spent providing and/or coordinating discharge services: Time spent: Less than 30 minutes - Discharge Medications Prescriptions: No Action Lisinopril [Zestril] 5 mg PO DAILY Citalopram Hydrobromide [Celexa] 40 mg PO DAILY Umeclidinium Brm/Vilanterol Tr [Anoro Ellipta 62.5-25 Mcg INH] 1 puff IH DAILY Albuterol Neb [Proventil Neb] 2.5 mg IH TID PRN PRN Reason: Shortness Of Breath Omeprazole [PriLOSEC] 40 mg PO DAILY #30 cap Acetaminophen [Pain Relief] 1,500 mg PO HS PRN PRN Reason: Pain Albuterol Sulfate [Ventolin Hfa] 2 puff IH Q4-6H PRN PRN Reason: Shortness Of Breath Fluticasone Furoate [Arnuity Ellipta] 1 puff IH DAILY Apixaban [Eliquis] 5 mg PO BID #60 tablet Atorvastatin [Lipitor] 80 mg PO HS #30 tablet Metoprolol [Lopressor] 12.5 mg PO BID #60 tablet Clopidogrel [Plavix] 75 mg PO DAILY #30 tablet Home Medications: Albuterol Neb [Proventil Neb] 2.5 mg IH TID PRN 08/08/16 [History] Citalopram Hydrobromide [Celexa] 40 mg PO DAILY 08/08/16 [History] Lisinopril [Zestril] 5 mg PO DAILY 08/08/16 [History] Umeclidinium Brm/Vilanterol Tr [Anoro Ellipta 62.5-25 Mcg INH] 1 puff IH DAILY 08/08/16 [History] Omeprazole [PriLOSEC] 40 mg PO DAILY #30 cap 08/10/16 [Rx] Acetaminophen [Pain Relief] 1,500 mg PO HS PRN 11/26/18 [History] Albuterol Sulfate [Ventolin Hfa] 2 puff IH Q4-6H PRN 11/26/18 [History] Fluticasone Furoate [Arnuity Ellipta] 1 puff IH DAILY 11/26/18 [History] Apixaban [Eliquis] 5 mg PO BID #60 tablet 11/30/18 [Rx] Atorvastatin [Lipitor] 80 mg PO HS #30 tablet 11/30/18 [Rx] Clopidogrel [Plavix] 75 mg PO DAILY #30 tablet 11/30/18 [Rx] Metoprolol [Lopressor] 12.5 mg PO BID #60 tablet 11/30/18 [Rx] Allergies/Adverse Reactions: Allergy/AdvReac Type Severity Reaction Status Date / Time Penicillins AdvReac Rash Verified 05/27/18 12:27 Date of admission: 11/30/18 15:36 Primary care physician: Nara Carver MD Consults: 11/30/18 16:02 Consult to Occupational Therapy [CONS] Routine Comment: Evaluate, develop and implement POC Reason for Consult: eval and tx Does patient have active BEDREST order?: No Is patient medically & hemodynamically stable?: Yes Patient assessed for mobility or mobilized this visit?: Yes Consult to Physical Therapy [CONS] Routine Comment: Evaluate, develop and implement POC Reason for Consult: eval and tx Does patient have active BEDREST order?: No Is patient medically & hemodynamically stable?: Yes Patient assessed for mobility or mobilized this visit?: Yes Consult to Recreational Therapy [CONS] Routine Comment: Evaluate, develop and implement POC Consult to Ribbon Blockmaker [CONS] Routine Reason for SW Consult: eval and tx Consult to Speech Therapy [CONS] Routine Comment: Evaluate, develop and implement POC Reason for Consult: speech impairment Call Completed: Yes 12/02/18 11:54 Consult to Psychology [CONS] Routine Consulting Provider: Claudia Avila Reason for Consult: Acute adjustment disorder Call Completed: No Discharging clinician: Washington Ballesteros - Constitutional Vitals: Temp Pulse Resp BP Pulse Ox 98.4 F 60 16 121/78 95 12/11/18 07:00 12/11/18 07:00 12/11/18 07:00 12/11/18 07:00 12/11/18 07:00 General appearance: Present: cooperative, A&O X 3, pleasant, no acute distress, answers questions appropriately - Head Head exam: Present: atraumatic, normocephalic - Eye Eye exam: Present: PERRL, conjuntiva pink, sclera anicteric Pupils: Present: PERRL - Neck Neck exam general surgery: Present: supple, trachea midline. Absent: lymphadenopathy - Respiratory Respiratory exam: Present: decreased breath sounds, CTAB. Absent: accessory muscle use, rales, rhonchi, wheezes - Cardiovascular Cardiovascular exam: Present: RRR, +S1, +S2. Absent: diastolic murmur, gallop, rubs, systolic murmur - GI/Abdominal GI/Abdominal exam: Present: normal bowel sounds, soft, no peritoneal signs. Absent: distended, tenderness - Extremities Exam Extremities exam: Present: warm, radial pulses palpable and symmetrical. Absent: calf tenderness, cyanotic, pedal edema - Neurological Exam Neurological exam: Present: CN II-XII intact, oriented X3, facial droop, speech deficit. Absent: pronater drift Additional comments: Patient noted to continue with left facial droop and very mild dysarthria. No motor deficits noted on exam. - Skin Skin exam: Present: dry, intact - Patient Status Disposition: Home, Self-Care Condition: Good Functional capacity at discharge: uses cane/walker Overall status at discharge: patient is progressing back to baseline - Discharge Instructions Follow Up With: Jamaal Flowers MD [Partnered Physician] - 12/29/18 3:00 pm Nara Carver MD [Primary Care Provider] - - Diet and Activity Activity: increase activity as tolerated Diet: diabetic diet, low fat, low cholesterol, low salt diet
--- NOTE | 2018-12-11 13:53 | Physician Discharge Referral ---
Home Health/Hosp Referral Info Transfer to: Home Health Provider in Charge Post Discharge: PCP - Diagnosis (1) CVA (cerebral vascular accident) Priority: Primary Status: Acute (2) COPD (chronic obstructive pulmonary disease) Priority: Secondary Status: Chronic (3) Hypertension Priority: Secondary Status: Chronic (4) Type 2 diabetes mellitus Priority: Secondary Status: Chronic - Respiratory Orders Smoking Cessation: Smoking cessation has been advised. For more information, call the [place] Tobacco Quit Line at 0-733-NSDS-NOW. - Diet/Nutrition Diet/Nutrition Orders: Regular Diet/Nutrition: List: dysphasia diet per speech therapy - Activity Activity Orders: Up ad aleksandr, Walker - Services Needed Following services are medically necessary services: Nursing, Home Health Aide, Physical Therapy, Occupational Therapy, Speech Therapy - Transfer Medications Home Medications: Albuterol Neb [Proventil Neb] 2.5 mg IH TID PRN 08/08/16 [History] Citalopram Hydrobromide [Celexa] 40 mg PO DAILY 08/08/16 [History] Lisinopril [Zestril] 5 mg PO DAILY 08/08/16 [History] Umeclidinium Brm/Vilanterol Tr [Anoro Ellipta 62.5-25 Mcg INH] 1 puff IH DAILY 08/08/16 [History] Omeprazole [PriLOSEC] 40 mg PO DAILY #30 cap 08/10/16 [Rx] Acetaminophen [Pain Relief] 1,500 mg PO HS PRN 11/26/18 [History] Albuterol Sulfate [Ventolin Hfa] 2 puff IH Q4-6H PRN 11/26/18 [History] Fluticasone Furoate [Arnuity Ellipta] 1 puff IH DAILY 11/26/18 [History] Apixaban [Eliquis] 5 mg PO BID #60 tablet 11/30/18 [Rx] Atorvastatin [Lipitor] 80 mg PO HS #30 tablet 11/30/18 [Rx] Clopidogrel [Plavix] 75 mg PO DAILY #30 tablet 11/30/18 [Rx] Metoprolol [Lopressor] 12.5 mg PO BID #60 tablet 11/30/18 [Rx] Allergies/Adverse Reactions: Allergy/AdvReac Type Severity Reaction Status Date / Time Penicillins AdvReac Rash Verified 05/27/18 12:27 Certification: Further, I certify that my clinical findings support that this patient is homebound (i.e. absences from home require considerable and taxing effort and are for medical reasons or gnosticism services or infrequently or short duration when for other reasons) because: Homebound Reason: Leaving home requires considerable and taxing effort due to condition Attestation: My signature below is to certify that this patient is under my care and that I, or nurse practitioner, or a physician's ophthalmic medical assistant working with me, has a [id number] encounter with this patient.
== END 2018-12-11 15:30 | disposition home or self-care (01) | DRG 57 ==
LOC: INPGRE 11-30 15:36